=== PATIENT | female | born 1965 | race Caucasian/White ===

== ENCOUNTER → 2017-12-05 | Outpatient (CLI) | payer BC | LOC: GMAHI 12:39 | PROVIDERS: ATTEND Nurse Practitioner Family | DX: E34.9 Endocrine disorder, unspecified (principal); E55.9 Vitamin D deficiency, unspecified; R00.0 Tachycardia, unspecified ==

== ENCOUNTER → 2017-12-12 | Outpatient (CLI) | payer BC ==
--- NOTE | 2017-12-14 09:48 | MAM ---
EXAM DESCRIPTION: 3D Screening BILATERAL : Digital Mammography. CLINICAL HISTORY: 52 years Female SCREENING . Right breast pain behind nipple intermittently. No personal or family history of breast cancer. Childbirth. Postmenopausal one year. No HRT. Lifetime risk of developing breast cancer (Tyrer-Cuzick model)(%): 10.5. COMPARISON: Baseline study at this facility.. No prior reports available. TECHNIQUE: Bilateral CC and MLO projection full-field images, digital tomosynthesis mammographic technique. Bilateral digital 2-D full-field MLO images. CAD not available for tomosynthesis or 2-D images. FINDINGS: The breast parenchymal density pattern is: Heterogeneously dense breast tissue, which may obscure small masses. No skin thickening or nipple retraction. Bilateral axillary lymph nodes. Scattered solitary microcalcifications bilaterally associated with the dense fibroglandular tissue. In the anterior third of the right breast is focal asymmetry at the posterior nipple line approximately 3 cm from the nipple. Associated with microcalcifications. In the left breast, focal asymmetry approximately 4 cm from the nipple at the 6:30 position anterior to mid third. Associated with microcalcifications. IMPRESSION: BI-RADS CATEGORY: 0 - INCOMPLETE- Need additional imaging evaluation. FOLLOW-UP: Recall for additional imaging: Bilateral targeted breast ultrasound of the regions of interest. Diagnostic mammographic imaging to follow if indicated by sonographic examination.. Written communication concerning the IMPRESSION and Follow-up, will be mailed to the patient and referring health care provider. Electronically signed by: Lanre Clark MD 12/14/2017 9:47 AM DATA STEWARD
== END ==
LOC: MAMMO 08:13
PROVIDERS: ATTEND Nurse Practitioner Family
DX: Z12.31 Encounter for screening mammogram for malignant neoplasm of breast (principal)

== ENCOUNTER → 2018-01-09 | Outpatient (CLI) | payer BC ==
--- NOTE | 2018-01-09 15:06 | US ---
EXAM DESCRIPTION: Breast,Bilateral: Ultrasound CLINICAL HISTORY: 52 yearsFemaleABN MAMMO COMPARISON: Digital screening tomosynthesis bilateral breasts 12/12/2017. TECHNIQUE: Transcutaneous scanning of the bilateral breasts utilizing ott-scale and Doppler modes. Scanning performed by the stereo equipment repairer and Dr. Clark. FINDINGS: Scanning of the right breast laterally anterior third. Heterogeneous fibroglandular and fatty mixed echotexture. 3 cm from the nipple hypoechoic mass with circumscribed borders, parallel orientation, and posterior enhancement features measuring 4.5 x 4.4 mm. Nonvascular with minimal internal echoes. Probable cyst. Scanning of the left breast lower inner quadrant anterior middle thirds. Hypoechoic mass with circumscribed margins, parallel orientation, and posterior enhancement features. Nonvascular. Probable cyst with debris more likely than solid lesion. Minimal internal echoes. In both breasts, no abnormal distinct solid masses in the regions that were scanned. No parenchymal edema or large calcifications. No overlying skin changes. Normal vascularity. IMPRESSION: Probably benign findings left breast. ASSESSMENT: Bi-Rads Category 3: Probably Benign Findings. FOLLOW-UP: Digital diagnostic 6 month left breast mammography follow-up with targeted left breast ultrasound. The FINDINGS and the FOLLOW-UP plan were reviewed in person with the patient after the examination. Written communication explaining the IMPRESSION and FOLLOW-UP will be mailed to the patient and referring care provider. Electronically signed by: Lanre Clark MD 01/09/2018 3:04 PM IMMIGRATION COORDINATOR
== END ==
LOC: US 08:06
PROVIDERS: ATTEND Nurse Practitioner Family
DX: R92.8 Other abnormal and inconclusive findings on diagnostic imaging of breast (principal)

== ENCOUNTER → 2019-11-13 | Outpatient (CLI) | payer BC | LOC: GMA MATASK 16:45 | PROVIDERS: ATTEND Family Medicine | DX: H81.13 Benign paroxysmal vertigo, bilateral (principal) ==

== ENCOUNTER → 2019-12-09 | Outpatient (CLI) | payer BC | LOC: GMA MATASK 16:46 | PROVIDERS: ATTEND Family Medicine | DX: E34.9 Endocrine disorder, unspecified (principal) ==

== ENCOUNTER → 2019-12-25 | Outpatient (CLI) | payer BC ==
--- NOTE | 2019-12-25 20:36 | MRI ---
EXAM DESCRIPTION: Brain w/wo Contrast: Magnetic Resonance Imaging. CLINICAL HISTORY: 54 years Female headache COMPARISON: None. TECHNIQUE: Multiplanar, I feel MRI, multiple conventional sequences, without and with 1 mL per 5 mg evaluate Dotarem gadolinium IV contrast. No adverse reactions. Multiple axial diffusion sequences. FINDINGS: Normal FLAIR and T2-weighted signal in the periventricular white matter and ott-white matter junctions of the cerebral hemispheres. No abnormal contrast enhancement. Normal signal in the bilateral basal ganglia. Normal contrast enhancement. Normal signal in the brainstem and cerebellar hemispheres. Normal contrast enhancement. Concordance of the diffusion and non-diffusion sequences with no evidence of acute or subacute infarction. Cortical sulci, ventricles, and other CSF spaces, and the subdural spaces are normally configured for patient's age. No effacement or displacement. No midline shift. No extra-axial hemorrhage. Normal contrast enhancement. Normal flow signal void in the major vessels of the [place], and the venous sinuses. IACs are symmetric bilaterally. Normal signal in the bilateral mastoid air cells. No mass effect in the bilateral Cerebellopontine angles. Normal contrast enhancement. Pituitary gland occupies most of the sella. Normal contrast enhancement. Base of the cerebellar tonsils is above the foramen magnum. Minimal mucoperiosteal thickening in the paranasal sinuses. No air-fluid levels. The bony calvarium is intact. IMPRESSION: 1. Normal MRI scan of the brain without and with gadolinium IV contrast. No hemorrhage, mass effect, midline shift, no abnormal fluid collection. 2. Normal noncontrast MRI diffusion study with no evidence of significant ischemia; no evidence of acute or subacute infarction. 3. Minimal chronic sinusitis. Electronically signed by: Lanre Clark MD 12/25/2019 8:35 PM [facility]
== END ==
LOC: MRI 10:10
PROVIDERS: ATTEND Otolaryngology
DX: G44.009 Cluster headache syndrome, unspecified, not intractable (principal); H81.399 Other peripheral vertigo, unspecified ear; J32.9 Chronic sinusitis, unspecified